=== PATIENT | male | born 1995 | race Caucasian/White ===

== ENCOUNTER 2023-08-26 11:43 | Emergency (ER) | payer SELFPAY ==
[~2023-08-26] VITALS: Ht 167.6 cm; Wt 64.8 kg
[2023-08-26 13:03] VITALS: BP 116/74; PULSE 72; RESP 16; TEMP 97.7; O2SAT 97
[2023-08-26] MEDS ORDERED: HYDROcodone-ACET 10/325MG TAB PO ONE (14:30)
[2023-08-26] MEDS ORDERED: KETOROLAC TROMETH 60MG/2ML VIAL IM ONE (14:30)
[2023-08-26] MEDS ORDERED: NEOMYCIN-BACITRACIN-POLYM UNITDOSE PKG TOP OINT TOP ONE (16:00)
[2023-08-26] MEDS ORDERED: CEPH500C PO (16:07)
[2023-08-26] MEDS ORDERED: BACIOIN15 TOP (16:07)
[2023-08-26] MEDS ORDERED: IBUP-1455 PO (16:07)
[2023-08-26] MEDS ORDERED: TRAM50TA2 PO (16:07)
== END 2023-08-26 17:25 | disposition home or self-care (01) ==
LOC: ER 11:43
DX: S63.502A Unspecified sprain of left wrist, initial encounter (principal); S40.012A Contusion of left shoulder, initial encounter; S80.02XA Contusion of left knee, initial encounter; Z88.8 Allergy status to other drugs, medicaments and biological substances; V89.0XXA Person injured in unspecified motor-vehicle accident, nontraffic, initial encounter; Y93.89 Activity, other specified; Y92.488 Other paved roadways as the place of occurrence of the external cause; Y99.8 Other external cause status
CPT/HCPCS: 73000; 73030; 73130; 73562; 73610; 73630; 96372; 99284; J1885